=== PATIENT | female | born 1935 | race Caucasian/White ===

== ENCOUNTER 2016-10-02 15:42 | Inpatient (IN) | payer MEDICARE, OTHER ==
[2016-10-02] MEDS ORDERED: ACETAMINOPHEN 325 MG TABLET PO ONE (16:20)
[2016-10-02] MEDS ORDERED: HOME MEDICATION LIST NEEDED 1 EA EACH MISC ONE (17:06)
[2016-10-02] MEDS ORDERED: ACETAMINOPHEN 325 MG TABLET PO PRN (17:06)
--- NOTE | 2016-10-02 17:41 | ER NURSING DOCUMENTATION ---
Nurse's Notes [facility] Name:Maday Scott Age:81 yrs Sex:Female :1935 Arrival Date:10/02/2016 Time:15:45 Bed6 Private MD:Jesús Larson Diagnosis:Foot Contusion Presentation: 10/02 16:02 Presenting complaint: Patient states: L foot injury not from a fall. Transition of lp care: Home. 16:02 Method Of Arrival: EMS: 410 lp 16:02 Acuity: LEBRON 3 lp Triage Assessment: 16:15 General: Appears in no apparent distress, Behavior is appropriate for age. Pain: lp Complains of pain in lateral aspect of left foot Pain currently is 2 out of 10 on a pain scale. At worst was 10 out of 10 on a pain scale. Aggravated by weight bearing. Neuro: Cardiovascular: No deficits noted. Respiratory: No deficits noted. GI: No deficits noted. : No deficits noted. Derm: No deficits noted. Musculoskeletal: Circulation, motion, and sensation intact Capillary refill < 3 seconds other Edema noted to L medial and outer aspect of foot Tenderness present in lateral aspect of left foot and medial aspect of left foot. Injury Description: Patient was walking in house with walker and felt a snap. Historical: - PMHx: stroke; ANEMIA; TIA; ATRIAL FIB; OSTEOARTHRITIS; HYPERTENSION; DEPRESSION; OBESITY; Pedal Edema (November 22, 2014); Cellulitis of Leg - : Bilateral (November 22, 2014); Weakness (November 22, 2014); Cellulitis (January 18, 2015); Fecal Impaction (January 18, 2015); - PSHx: KNEE SURGERY; APPENDECTOMY; Carotid endardectomy; - Tetanus: < 10 years. - Ebola Screening: : Patient negative for fever greater than or equal to 101.5 degrees Fahrenheit, and additional compatible Ebola Virus Disease symptoms. Patient denies exposure to infectious person. Patient denies travel to an Ebola-affected area in the 21 days before illness onset. . - Immunization history: Pneumococcal vaccine is not up to date, Flu Vaccine None Flu Vaccine None. - Social history: Smoking status: Patient states former smoker of tobacco. Screenin:04 Infectious Disease Risk None. Abuse screen: Denies threats or abuse. Denies injuries lp from another. Nutritional screening: No deficits noted. Assessment: 16:12 Pain: Complains of pain in lateral aspect of left foot and medial aspect of left foot. lp Neuro: No deficits noted. EENT: No deficits noted. Cardiovascular: No deficits noted. Respiratory: No deficits noted. GI: No deficits noted. : No deficits noted. Derm: No deficits noted. Vital Signs: 16:03 BP 168 / 64; Pulse 75; Resp 16; Temp 98.5(O); Pulse Ox 94% on R/A; Weight 82.55 kg; lp Height 5 ft. 4 in. (162.56 cm); Pain 2/10; 16:03 Body Mass Index 31.24 (82.55 kg, 162.56 cm) lp ED Course: 15:48 Patient arrived in ED. ds 15:48 Jesús Larson MD is Private Physician. ds 16:02 Carmel Ham RN is Primary Nurse. lp 16:02 Triage completed. lp 16:[address] Gonzalez notified. lp 16:09 Port Xray Completed. ms 16:17 Valuables Remains with patient Patient has correct armband on for positive lp identification. Bed in low position. Call light in reach. Side rails up X 1. ED physician of patient's arrival and chief complaint. Dr. Gonzalez notified. 16:22 Lokesh Gonzalez MD is Attending Physician. mi 16:40 Jesús Larson MD is Referral Physician. mi 17:03 Jesús Larson MD is Admitting Physician. mi 17:10 Crutch training done. Walking boot applied Patient unable to tolerate crutches at this lp time due to shoulder pain. Fears falling. Administered Medications: 16:11 Drug: Tylenol 975 mg; Route: PO; lp 17:05 Follow up: Response: Pain is decreased lp Outcome: 16:41 Discharge ordered by . sc 17:04 Decision to Admit by Provider. mi 17:40 Admitted to Med/surg accompanied by nurse, Other Report to Vaishnavi MOROCHO lp 17:40 Condition: stable 17:40 Instructed on need to admit 17:41 Patient left the ED. lp Signatures: Carmel Ham RN RN lp Srot, Delfina, Reg Reg ds Lokesh Gonzalez MD MD mi Maday Marshall ms
--- NOTE | 2016-10-02 17:41 | ER PHYSICIAN DOCUMENTATION ---
Physician Documentation [facility] Name:Maday Scott Age:81 yrs Sex:Female :1935 Arrival Date:10/02/2016 Time:15:45 Bed6 Private MD:Jesús Larson ED, Scott Disposition: 10/02/16 17:04 Admit ordered for Jesús Larson. Preliminary diagnosis is Foot Contusion. - Bed requested for Medical/Surgical. - Condition is Fair. - Problem is new. - Symptoms are unchanged. 23 HR OBS Yes HPI: 10/02 16:34 This 81 yrs old Female presents to ER via EMS with complaints of foot - LEFT. sc 16:34 The patient presents with an injury. The complaints affect the left foot. Context: The sc problem was sustained at home, resulted from walking, felt crack and foot pain, no fall, Mechanism of Injury: Unknown the patient can partially bear weight, can ambulate using a cane. Onset: The symptom(s)/episode began/occurred just prior to arrival. Associated signs and symptoms: The patient has no apparent associated signs or symptoms. Historical: - PMHx: stroke; ANEMIA; TIA; ATRIAL FIB; OSTEOARTHRITIS; HYPERTENSION; DEPRESSION; OBESITY; Pedal Edema (November 22, 2014); Cellulitis of Leg - : Bilateral (November 22, 2014); Weakness (November 22, 2014); Cellulitis (January 18, 2015); Fecal Impaction (January 18, 2015); - PSHx: KNEE SURGERY; APPENDECTOMY; Carotid endardectomy; - Tetanus: < 10 years. - Ebola Screening: : Patient negative for fever greater than or equal to 101.5 degrees Fahrenheit, and additional compatible Ebola Virus Disease symptoms. Patient denies exposure to infectious person. Patient denies travel to an Ebola-affected area in the 21 days before illness onset. . - Immunization history: Pneumococcal vaccine is not up to date, Flu Vaccine None Flu Vaccine None. - Social history: Smoking status: Patient states former smoker of tobacco. ROS: 16:37 MS/extremity: Positive for injury or acute deformity, pain. sc 16:37 Constitutional: Negative for fever, chills, and weight loss. sc Eyes: Negative for injury, pain, redness, and discharge. Neck: Negative for injury, pain, and swelling. Skin: Negative for injury, rash, and discoloration. 16:37 Neuro: Negative for headache, weakness, numbness, tingling, and seizure. Exam: Constitutional: This is a well developed, well nourished patient who is awake, alert, and in no acute distress. Head/Face: Normocephalic, atraumatic. Eyes: Pupils equal round and reactive to light, extra-ocular motions intact. Lids and lashes normal. Conjunctiva and sclera are non-icteric and not injected. Cornea within normal limits. Periorbital areas with no swelling, redness, or edema. Back: No spinal tenderness. No costovertebral tenderness. Full range of motion. 16:39 Skin: Warm, dry with normal turgor. Normal color with no rashes, no lesions, and no sc evidence of cellulitis. 16:39 Musculoskeletal/extremity: Extremities: grossly normal except: pain, ROM: intact in all extremities, Circulation is intact in all extremities. Sensation intact. diffuse lateral foot pain, no specific xray abnormality, suspect stress fx. Vital Signs: 16:03 BP 168 / 64; Pulse 75; Resp 16; Temp 98.5(O); Pulse Ox 94% on R/A; Weight 82.55 kg; lp Height 5 ft. 4 in. (162.56 cm); Pain 2/10; 16:03 Body Mass Index 31.24 (82.55 kg, 162.56 cm) lp MDM: 16:23 Patient medically screened. va 16:40 Differential diagnosis: fracture, sprain, arthritis. Data reviewed: vital signs, nurses sc notes, radiologic studies, and as a result, I will discharge patient. Counseling: I had a detailed discussion with the patient and/or guardian regarding: the historical points, exam findings, and any diagnostic results supporting the discharge/admit diagnosis, radiology results, the need for outpatient follow up. 17:04 Physician consultation: Jesús Larson MD was called at 17:04, was contacted at 17:04, va regarding admission, and will see patient in inpatient room, shortly. 10/02 16:18 Order name: [id number] [id number] EDCT 10/02 16:32 Interpretation: Normal: degenerative changes. va 10/02 16:34 Order name: Elevate and Ice Pack; Complete Time: 17:05 va 10/02 16:34 Order name: ORTHO: Crutches & Training; Complete Time: 17:05 va 10/02 16:34 Order name: Walking Boot; Complete Time: 17:05 va Dispensed Medications: 16:11 Drug: Tylenol 975 mg; Route: PO; lp 17:05 Follow up: Response: Pain is decreased lp Signatures: Carmel Ham RN RN Lokesh Venegas MD MD va
[2016-10-02] MEDS ORDERED: POLYETHYLENE GLYCOL 3350 17 GM POWD.PACK PO PRN (19:16)
[2016-10-02] MEDS ORDERED: MORPHINE SULFATE 2 MG/ML SYR IV PRN (19:28)
[2016-10-02] MEDS ORDERED: HYDROcodone/APAP 5/325 MG 1 TAB TABLET PO PRN (19:28)
[2016-10-02] MEDS ORDERED: WARFARIN SODIUM 5 MG TABLET PO SCH (20:00)
[2016-10-02] MEDS: LIDOCAINE 5% 1 PATCH PATCH TOPICAL SCH (20:20)
[2016-10-02] MEDS: DICLOFENAC 1% GEL 100 APP/100 GM TUBE TOPICAL SCH (20:20)
[2016-10-02] MEDS ORDERED: WARFARIN SODIUM 2.5 MG TABLET PO ONE (20:21)
[2016-10-02] MEDS: ACETAMINOPHEN ER 650 MG TAB.SR.8HR PO SCH (21:24)
[2016-10-02] MEDS: WARFARIN SODIUM 2.5 MG TABLET PO SCH (21:26)
[2016-10-03 06:02] LABS: BASOPHILS 0.8 % (0.0-2.0); EOSINOPHILS 3.8 % (0.0-6.0); EOSINOPHILS# 0.2 X 10^3uL (0.0-0.4); HEMATOCRIT 36.8 % (36.0-48.0); HEMOGLOBIN 12.5 g/dL (12.0-16.0); LYMPHOCYTES 29.1 % (20.0-40.0); LYMPHOCYTES# 1.2 X 10^3uL (0.8-3.8); MEAN CORPUS. HGB CONCENTRATION 33.8 g/dL (32.0-36.0); MEAN CORPUSCULAR HEMOGLOBIN 28.8 pg (29.0-35.0); MEAN PLATELET VOLUME 7.5 fL (7.4-10.4); MONOCYTES 10.3 % (2.0-10.0); MONOCYTES# 0.4 X 10^3uL (0.2-1.0); NEUTROPHILS# 2.3 X 10^3uL (2.6-6.7); PLATELET COUNT 237 X 10^3uL (130-440); RED BLOOD COUNT 4.33 X 10^6uL (4.20-6.10); RED CELL DISTRIBUTION WIDTH 13.2 % (11.5-14.5); WHITE BLOOD COUNT 4.1 X 10^3uL (3.9-10.7)
[2016-10-03 06:20] LABS: BLOOD UREA NITROGEN 13 mg/dL (7-17); C-REACTIVE PROTEIN 13.6 mg/L (<10.0); CALCIUM 9.6 mg/dL (8.4-10.2); CALCULATED LDL 90 mg/dL; CHLORIDE 98 mmol/L (98-107); CHOL/HDL RATIO 3 (<4); CHOLESTEROL 156 mg/dL; CREATININE 0.8 mg/dL (0.5-1.0); GLUCOSE 78 mg/dL (70-100); HDL CHOLESTEROL 47 mg/dL; POTASSIUM 4.1 mmol/L (3.5-5.1); SODIUM 132 mmol/L (137-145); TRIGLYCERIDES 95 mg/dL; VLDL CHOLESTEROL 19 mg/dL (<30)
--- NOTE | 2016-10-03 07:42 | RADIOLOGY REPORT ---
Three views of the left foot demonstrate no displaced fracture or dislocation. The visualized joints appear unremarkable. Posterior and plantar calcaneal spurs are seen. IMPRESSION; No displaced injury is identified. If clinically indicated, further evaluation and/or follow-up may be of benefit. CORNEL
[2016-10-03 08:07] LABS: ERYTHROCYTE SEDIMENTATION RATE 12 MM/HR (0-20)
[2016-10-03 08:24] LABS: INR 3.2
[2016-10-03] MEDS: TRIAMTERENE PO SCH (08:30)
[2016-10-03] MEDS: HCTZ PO SCH (08:30)
[2016-10-03] MEDS: MULTIVITAMINS THERAPEUTIC 1 TABLET PO SCH (08:31)
[2016-10-03] MEDS: ACETAMINOPHEN ER 650 MG TAB.SR.8HR PO SCH ×3 (08:31→20:32)
[2016-10-03] MEDS: REMOVE PATCH 1 PATCH PATCH TOPICAL SCH (08:32)
[2016-10-03] MEDS: DICLOFENAC 1% GEL 100 APP/100 GM TUBE TOPICAL SCH ×4 (08:33→20:31)
[2016-10-03] MEDS: CHOLECALCIFEROL 1,000 UNIT CAPSULE PO SCH (11:57)
--- NOTE | 2016-10-03 13:53 | CONSULTATION ---
DATE OF CONSULTATION: 10/03/16 REFERRING PHYSICIAN: Dr. Larson. CHIEF COMPLAINT: Left foot pain. Dear Dr. Larson, Thank you for asking me to evaluate this patient. As you know she is an 81-year -old female who was at home yesterday when she felt a crack in her left foot as she was walking. She denies stumbling and denies sustaining a twist injury or inversion injury to the foot. However, she was then immediately unable to ambulate and was brought into the emergency department. Radiographs at that time did not reveal any obvious evidence of fracture, but due to her inability to weight bear on the left lower extremity she was admitted to the hospital. PAST MEDICAL HISTORY: Her past medical history is otherwise remarkable for 1. Stroke. 2. Anemia. 3. TIA. 4. Atrial fibrillation. 5. Hypertension. 6. Depression. PAST SURGICAL HISTORY: Remarkable for 1. Bilateral knee replacements. 2. Appendectomy. 3. Carotid endarterectomy. MEDICATIONS: She is currently on Acetaminophen. Maxzide. MiraLax. Coumadin. Lopressor. ALLERGIES: Penicillins, clindamycin, miconazole, neomycin. FAMILY HISTORY: Noncontributory. SOCIAL HISTORY: The patient lives alone and is a nonsmoker. REVIEW OF SYSTEMS: Review of systems is negative for a fall and is negative for any chest pain or shortness of breath. Review of systems is otherwise noncontributory. PHYSICAL EXAMINATION GENERAL: A somewhat frail appearing, elderly female in no apparent distress, who is alert and oriented. LEFT FOOT: Physical examination of the left foot reveals that there is mild diffuse swelling compared to the right foot. There is no deformity. She is somewhat tender to palpation adjacent to the distal portion of the fifth metatarsal, but exquisitely tender to palpation at the base of the fifth metatarsal. There is no warmth or erythema in that area. The remainder of the foot is entirely nontender and she has pain free motion otherwise. X-RAY EVALUATION: Plain radiographs of the foot that were obtained in the emergency department revealed diffuse osteopenia but no obvious fracture. ASSESSMENT: Acute left foot pain with sensation of a crack at the onset of her symptoms suggesting the possibility of occult fracture of the base of the fifth metatarsal. PLAN/RECOMMENDATIONS: We will obtain an MRI of the foot in order to evaluate her for an occult fracture. This will simply help us with diagnosis and give us an idea as to what she would expect in terms of recovery. In the mean time she can continue to weight bear as tolerated in a short fracture boot and I will follow up on the results of the MRI. Thank you again for asking me to evaluate this patient. Copy to Dr. Larson. CORNEL
--- NOTE | 2016-10-03 14:42 | MRI REPORT ---
EXAM: MRI left foot. DATE: 10/03/2016 INDICATION: Left foot pain. Rule out occult fracture of the fifth metatarsal. COMPARISON: None. TECHNIQUE: Axial T1 and T2 fat-suppressed, coronal PD and T2 fat-suppressed, sagittal PD and T2 fat-s uppressed sequences. FINDINGS: There is extensive subcutaneous edema involving posterior ventral and plantar aspect of the foot incl uding the deep soft tissues on the plantar aspect. No abscess. Osseous: There is subcortical cystic change involving the medial cuneiform at the navicular cuneiform joint space. This is associated with degenerative disease with joint space during, cortical irregula rity and marginal osteophytes. No fractures identified. There is no evidence of osteonecrosis. No mar row edema or evidence of osteomyelitis. The distal, visualized portion of the peroneus brevis tendon appears unremarkable as it inserts on the base of the fifth metatarsal. There are degenerative changes of the the ventricular cuneiform joint involving the medial cuneiform. Remaining joint spaces appear adequately maintained. No dislocation. The toes are held in extension have a hammertoe configuration the second through fifth toes. There are less marked changes of the gr eat toe. The flexor and extensor tendon mechanisms appear intact. The plantar fascia is intact. IMPRESSION: 1. Extensive edema of the subcutaneous fat and deep soft tissues of the ventral and plantar aspect of the foot. No abscess or mass. 2. No evidence of fracture, osteonecrosis or osteomyelitis. 3. Degenerative disease of the joint space between the ventricular and medial cuneiform. Final Electronic Signature: This report was electronically signed by Mane Giron MD on 10/03/2016 2: 40 PM. [facility] /
[2016-10-03] MEDS: WARFARIN SODIUM 2.5 MG TABLET PO SCH (15:26)
--- NOTE | 2016-10-03 15:42 | HISTORY & PHYSICAL ---
DATE OF ADMISSION AND MY EVALUATION: 10/02/16 CHIEF COMPLAINT: Left foot pain. HISTORY OF PRESENT ILLNESS: This 81-year-old homebound patient of mine has had several weeks of some mild left foot pain, which had not been brought to my attention. This afternoon while she was up walking to the bathroom she heard a pop in her left midfoot and felt a sudden pain there. The pain has persisted and made it very difficult to do any ambulation. She has no previous history of foot problems, gout or any recent trauma. She lives alone in the upper floor of a house, and has not managed the stairs for a long time. She has helpers who bring in food and supplies, as well as some help from home health care for some chronic leg ulcerations. She was brought to the emergency department by ambulance after being carried out of her home, and was in too much pain with ambulation to be able to go back home or even to walk more than a step or two. PAST MEDICAL HISTORY 1. Chronic fatigue. 2. Generalized severe osteoarthrosis making ambulation difficult. She generally uses a walker. 3. Hypertension. 4. Hyperlipidemia. 5. Major depressive disorder, controlled. 6. Obesity. 7. Osteopenia. 8. Paroxysmal atrial fibrillation with chronic anticoagulation with warfarin. 9. Pedal edema. 10. Previous transient ischemic attacks. 11. 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 Previous ulcer on the left alfaro has resolved. 12. Chronic urinary incontinence. 13. Venostasis dermatitis, both lower extremities. 14. Chronic leukopenia. 15. History of iron deficiency anemia. ALLERGIES: Include clindamycin hives, Neosporin, penicillin and shellfish shrimp. MEDICATIONS ON ADMISSION Tylenol sustained release 650 mg t.i.d. regularly. Vitamin D3 2000 mg capsules q.daily. Garlic 1000 mg b.i.d. Magnesium 144 mg p.o. daily. Metoprolol succinate 50 mg once daily. Triamterene hydrochlorothiazide 37.5/25 mg one-half tablet daily. Niacin flush free, 500 mg capsules, 2 twice daily. Multivitamin 1 daily. SOCIAL HISTORY: See HPI. She is a former smoker but quit many years ago. Minimal alcohol use. The patient in the past has completed a DNR form which is still valid. REVIEW OF SYSTEMS GENERAL: Fatigued, no fever or chills. RESPIRATORY: No cough or shortness of breath. CARDIOVASCULAR: No chest pain or palpitations. GI: No nausea, vomiting, diarrhea or abdominal pain. : Some chronic urinary incontinence, unchanged. MUSCULOSKELETAL: Acute severe pain in the left midfoot with ambulation primarily. Some chronic generalized arthritic pains especially in the knees and lower back. PHYSICAL EXAMINATION VITAL SIGNS: On admission were a temp of 36.8, blood pressure 198/86, pulse 69 , respirations 18, O2 saturation 92% on room air. GENERAL: She was alert and oriented times 3 and in no acute distress at rest, but in great distress with any ambulation, even with a short leg walking boot. HEENT: Atraumatic. Oral mucosa was moist. LUNGS: Clear but with some distant breath sounds. HEART: A regular rhythm and no murmur. ABDOMEN: Mildly obese, nontender, without masses or hepatosplenomegaly. EXTREMITIES: Without edema. She has some chronic well controlled stasis dermatitis in both lower legs with some apple core type deformities. She has an approximately 6 mm crusted ulceration in the right lower alfaro. No other active ulcers. LABORATORY DATA: Her white count was 4100 with 56% neutrophils and 29% lymphs, hemoglobin was 12.5, hematocrit 36.8, platelets were at 237,000. Her ESR was only 12. INR was 3.2. Sodium 132, potassium 4.1, chloride 98, CO2 26, creatinine 0.8, glucose 78. C reactive protein elevated at 13.6. IMAGING: The patients left foot x-ray appeared to be normal for age without any fractures. IMPRESSION 1. Acute on chronic left foot pain severe enough to inhibit ambulation. The differential diagnosis would include an occult fracture, rupture of the plantar fascia or gout. 2. Hypertension under poor control, probably because of being in the hospital and having pain. 3. Hyperlipidemia needing recheck. 4. Previous history of TIA. 5. Atrial fibrillation, primarily with episodes in the night. Slightly excessively anticoagulated and on metoprolol for rate control. 6. Obesity. 7. Generalized weakness with muscle atrophy, making it impossible for her to get up the stairs given her foot pain. PLAN: I plan to have the patient evaluated by orthopedics in the morning. Will cover her discomfort with regular dosing of the Tylenol supplemented with p.r.n. hydrocodone and/or morphine. I am hesitant to give her any oral NSAIDs because of her anticoagulation. I did order Lidoderm patches to use at night and Voltaren gel to use during the day. I have given her an extra dose of metoprolol to get the blood pressure down. Will continue her other usual medications. Will check cholesterol status. Once we have a more definitive diagnosis we can work out social and logistical issues for discharge. CORNEL
--- NOTE | 2016-10-03 16:45 | PROGRESS NOTE: Orthopedics ---
Orthopedic PN Subjective - Subjective Principal Diagnosis: Left foot pain Ortho PN Objective Exam - Latest Vital Signs and I&O Latest Vital Signs/I&O: Vital Signs Temp 37.2 C 10/03/16 15:00 Pulse 60 10/03/16 15:00 Resp 18 10/03/16 15:00 BP 146/60 10/03/16 15:00 Pulse Ox 96 10/03/16 15:00 Intake & Output 10/02/16 10/03/16 10/03/16 17:59 05:59 17:59 Weight 78.5 kg 78.5 kg Other: Urine Color Yellow Yellow Voiding Method Incontinent Incontinent - Lab Labs: Laboratory Last Values WBC 4.1 X 10^3uL (3.9-10.7) 10/03/16 05:20 RBC 4.33 X 10^6uL (4.20-6.10) 10/03/16 05:20 Hgb 12.5 g/dL (12.0-16.0) 10/03/16 05:20 Hct 36.8 % (36.0-48.0) 10/03/16 05:20 MCV 85.0 fL (80.0-100.0) 10/03/16 05:20 MCH 28.8 pg (29.0-35.0) L 10/03/16 05:20 MCHC 33.8 g/dL (32.0-36.0) 10/03/16 05:20 RDW 13.2 % (11.5-14.5) 10/03/16 05:20 Plt Count 237 X 10^3uL (130-440) 10/03/16 05:20 MPV 7.5 fL (7.4-10.4) 10/03/16 05:20 Neutrophils % 56.0 % (54.0-75.0) 10/03/16 05:20 Lymphocytes % 29.1 % (20.0-40.0) 10/03/16 05:20 Eosinophils % 3.8 % (0.0-6.0) 10/03/16 05:20 Basophils % 0.8 % (0.0-2.0) 10/03/16 05:20 Neutrophils # 2.3 X 10^3uL (2.6-6.7) L 10/03/16 05:20 Lymphocytes # 1.2 X 10^3uL (0.8-3.8) 10/03/16 05:20 Monocytes 10.3 % (2.0-10.0) H 10/03/16 05:20 Monocytes # 0.4 X 10^3uL (0.2-1.0) 10/03/16 05:20 Eosinophils # 0.2 X 10^3uL (0.0-0.4) 10/03/16 05:20 Basophils # 0.0 X 10^3uL (0.0-0.1) 10/03/16 05:20 ESR 12 MM/HR (0-20) 10/03/16 05:20 PT 38.0 sec (13.0-16.6) H 10/03/16 05:20 INR 3.2 10/03/16 05:20 Sodium 132 mmol/L (137-145) L 10/03/16 05:20 Potassium 4.1 mmol/L (3.5-5.1) 10/03/16 05:20 Chloride 98 mmol/L (98-107) 10/03/16 05:20 Carbon Dioxide 26 mmol/L (22-30) 10/03/16 05:20 BUN 13 mg/dL (7-17) 10/03/16 05:20 Creatinine 0.8 mg/dL (0.5-1.0) 10/03/16 05:20 GFR Calculation Not Reportable 10/03/16 05:20 Glucose 78 mg/dL (70-100) 10/03/16 05:20 Uric Acid 5.4 mg/dL (2.5-6.2) 10/03/16 05:20 Calcium 9.6 mg/dL (8.4-10.2) 10/03/16 05:20 C-Reactive Protein 13.6 mg/L (<10.0) H 10/03/16 05:20 Triglycerides 95 mg/dL 10/03/16 05:20 Cholesterol 156 mg/dL 10/03/16 05:20 LDL Cholesterol, Calc 90 mg/dL 10/03/16 05:20 VLDL Cholesterol, Calc 19 mg/dL (<30) 10/03/16 05:20 HDL Cholesterol 47 mg/dL 10/03/16 05:20 Cholesterol/HDL Ratio 3 (<4) 10/03/16 05:20 Assessment and Plan-Ortho - Date of Encounter Date of Encounter: 10/03/16 (1) Acute pain of left foot Status: Acute Assessment and plan: Reviewed MRI. No evidence of occult fracture. Plan: Pt may weightbear as tolerated, using boot for comfort. After discharge she should f/u with podiatry if she has persistent pain. Current Visit: Yes Quality Questions - VTE Prophylaxis Assessment VTE Present on Admission?: No Patient at risk for venous thromboembolism?: No VTE Risk Level: Very Low Risk Pharmaceutical VTE prophylaxis contraindication reason: not indicated Mechanical VTE prophylaxis contraindication reason: not indicated
--- NOTE | 2016-10-03 19:54 | PROGRESS NOTE: IM APSO ---
Assessment and Plan - Date of Encounter Date of Encounter: 10/03/16 (1) Acute pain of left foot Status: Acute Assessment and plan: the exact etiology of her acute left foot pain remains unclear. Her MRI today ruled out an occult fracture or any obvious soft tissue injury or infection. She does have some soft tissue swelling, but chronically has bilateral pedal edema. perhaps she strained her plantar fascia, since most of the pain seems to be localized to the mid sole area. Her pain is a little better today, although she cannot stand on that leg. She cannot function at home and less she can walk 5 or 10 feet at a time to get to the bathroom and kitchen. I am hopeful that by tomorrow afternoon, she may be able to accomplish that. She will likely need paramedics to assist her up her stairs to get to the living level. Once she is on her living level, she should be okay with her current caregivers. She has used to living on that level long-term, and has only gotten out once or twice a year for the past couple years. She is not interested in going to [facility]. Current Visit: Yes (2) Generalized weakness Status: Acute Assessment and plan: She has chronic generalized weakness, but worse in the right leg than the left since her stroke 5 or 6 years ago. This is complicating her situation. Refer to the section on left foot pain. Current Visit: Yes (3) Right leg weakness Status: Acute Assessment and plan: Mild. 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 Current Visit: Yes - Time Spent With Patient Total time spent with greater than 50% in coordination of care (as documented) at patient's floor/unit and/or counseling patient: Estimated anticipated discharge: 10/04/16. Dr. Webber will cover IM: PN Subjective General: fatigue HEENT: no headache Cardiovascular: no chest pain Respiratory: no cough Gastrointestinal: no nausea, no diarrhea, no constipation Genitourinary: no dysuria Musculoskeletal: pain (her left foot pain is excruciating when she stands on it. ), swelling (mild and chronic in both lower legs.), weakness (Some chronic weakness in the right leg. ) Integumentary: no rashes, no wound Neurological: no numbness, no tingling IM: PN Objective Exam - I&O/Vital Signs I&O: Intake & Output 10/03/16 10/03/1610/03/17 05:59 13:59 21:59 Intake Total 640 Output Total 100 Balance 540 Weight 78.5 kg 78.5 kg Intake: Oral 640 Output: Urine 100 Other: Urine Appearance Clear Urine Color Yellow Yellow Stool Size Small Stool Characteristics Formed Brown Voiding Method Incontinent Incontinent # Voids 5 Vital Signs: Last Vital Signs Temp 37.3 C 10/03/16 19:00 Pulse 87 10/03/16 19:00 Resp 20 10/03/16 19:00 BP 131/64 10/03/16 19:00 Pulse Ox 94 10/03/16 19:00 Oxygen Flow Rate 1 Oxygen Delivery Method Nasal Cannula - Constitutional General appearance: Present: cooperative, obese. Absent: acute distress - ENT ENT exam: Present: mucous membranes dry - Cardiovascular Cardiovascular exam: Present: RRR. Absent: systolic murmur - GI/Abdominal GI/Abdominal exam: Present: soft. Absent: tenderness - Neurological Exam Neurological exam: Present: abnormal gait (today she was able to pivot from the bed to the bedside commode primarily using her right leg. She is unable to weight-bear on t because of the foot pain.), alert, oriented X3 - Skin Skin exam: Absent: rash - Allied Health Notes Allied health notes reviewed: case management, nursing - Lab Labs: Laboratory Last Values WBC 4.1 X 10^3uL (3.9-10.7) 10/03/16 05:20 RBC 4.33 X 10^6uL (4.20-6.10) 10/03/16 05:20 Hgb 12.5 g/dL (12.0-16.0) 10/03/16 05:20 Hct 36.8 % (36.0-48.0) 10/03/16 05:20 MCV 85.0 fL (80.0-100.0) 10/03/16 05:20 MCH 28.8 pg (29.0-35.0) L 10/03/16 05:20 MCHC 33.8 g/dL (32.0-36.0) 10/03/16 05:20 RDW 13.2 % (11.5-14.5) 10/03/16 05:20 Plt Count 237 X 10^3uL (130-440) 10/03/16 05:20 MPV 7.5 fL (7.4-10.4) 10/03/16 05:20 Neutrophils % 56.0 % (54.0-75.0) 10/03/16 05:20 Lymphocytes % 29.1 % (20.0-40.0) 10/03/16 05:20 Eosinophils % 3.8 % (0.0-6.0) 10/03/16 05:20 Basophils % 0.8 % (0.0-2.0) 10/03/16 05:20 Neutrophils # 2.3 X 10^3uL (2.6-6.7) L 10/03/16 05:20 Lymphocytes # 1.2 X 10^3uL (0.8-3.8) 10/03/16 05:20 Monocytes 10.3 % (2.0-10.0) H 10/03/16 05:20 Monocytes # 0.4 X 10^3uL (0.2-1.0) 10/03/16 05:20 Eosinophils # 0.2 X 10^3uL (0.0-0.4) 10/03/16 05:20 Basophils # 0.0 X 10^3uL (0.0-0.1) 10/03/16 05:20 ESR 12 MM/HR (0-20) 10/03/16 05:20 PT 38.0 sec (13.0-16.6) H 10/03/16 05:20 INR 3.2 10/03/16 05:20 Sodium 132 mmol/L (137-145) L 10/03/16 05:20 Potassium 4.1 mmol/L (3.5-5.1) 10/03/16 05:20 Chloride 98 mmol/L (98-107) 10/03/16 05:20 Carbon Dioxide 26 mmol/L (22-30) 10/03/16 05:20 BUN 13 mg/dL (7-17) 10/03/16 05:20 Creatinine 0.8 mg/dL (0.5-1.0) 10/03/16 05:20 GFR Calculation Not Reportable 10/03/16 05:20 Glucose 78 mg/dL (70-100) 10/03/16 05:20 Uric Acid 5.4 mg/dL (2.5-6.2) 10/03/16 05:20 Calcium 9.6 mg/dL (8.4-10.2) 10/03/16 05:20 C-Reactive Protein 13.6 mg/L (<10.0) H 10/03/16 05:20 Triglycerides 95 mg/dL 10/03/16 05:20 Cholesterol 156 mg/dL 10/03/16 05:20 LDL Cholesterol, Calc 90 mg/dL 10/03/16 05:20 VLDL Cholesterol, Calc 19 mg/dL (<30) 10/03/16 05:20 HDL Cholesterol 47 mg/dL 10/03/16 05:20 Cholesterol/HDL Ratio 3 (<4) 10/03/16 05:20
[2016-10-03] MEDS: LIDOCAINE 5% 1 PATCH PATCH TOPICAL SCH (20:31)
[2016-10-03] MEDS: MAGNESIUM OXIDE 400 MG TABLET PO SCH (20:32)
[2016-10-04] MEDS: TRIAMTERENE PO SCH (08:11)
[2016-10-04] MEDS: ACETAMINOPHEN ER 650 MG TAB.SR.8HR PO SCH ×3 (08:11→20:15)
[2016-10-04] MEDS: HCTZ PO SCH (08:11)
[2016-10-04] MEDS: MULTIVITAMINS THERAPEUTIC 1 TABLET PO SCH (08:12)
[2016-10-04] MEDS: MAGNESIUM OXIDE 400 MG TABLET PO SCH ×2 (08:12→20:15)
[2016-10-04] MEDS: DICLOFENAC 1% GEL 100 APP/100 GM TUBE TOPICAL SCH ×4 (08:18→20:15)
[2016-10-04] MEDS: REMOVE PATCH 1 PATCH PATCH TOPICAL SCH (08:20)
[2016-10-04] MEDS ORDERED: MULTIVITAMINS THERAPEUTIC 1 TABLET PO SCH (09:00)
--- NOTE | 2016-10-04 12:58 | PROGRESS NOTE: IM SOAP ---
IM: PN Subjective General: fatigue HEENT: no headache Cardiovascular: no chest pain Respiratory: no cough Gastrointestinal: no nausea, no diarrhea, no constipation Genitourinary: no dysuria Musculoskeletal: pain (her left foot pain is excruciating when she stands on it. ), swelling (mild and chronic in both lower legs.), weakness (Some chronic weakness in the right leg. ) Integumentary: no rashes, no wound Neurological: no numbness, no tingling IM: PN Objective Exam - I&O/Vital Signs I&O: Intake & Output 10/03/16 10/04/16 10/04/16 21:59 05:59 13:59 Intake Total 640 200 Output Total 100 Balance 540 200 Weight 79.5 kg Intake: Oral 640 200 Output: Urine 100 Other: Urine Appearance Clear Urine Color Yellow Stool Size Small Stool Characteristics Formed Brown Voiding Method Incontinent Diaper Diaper # Voids 5 3 # Bowel Movements 0 Vital Signs: Last Vital Signs Temp 36.3 C L 10/04/16 11:00 Pulse 62 10/04/16 11:00 Resp 16 10/04/16 11:00 BP 128/58 10/04/16 11:00 Pulse Ox 93 10/04/16 11:00 Oxygen Flow Rate 1 Oxygen Delivery Method Room Air - Constitutional General appearance: Present: cooperative, obese. Absent: acute distress - ENT ENT exam: Present: mucous membranes dry - Cardiovascular Cardiovascular exam: Present: RRR, systolic murmur - GI/Abdominal GI/Abdominal exam: Present: soft. Absent: tenderness - Neurological Exam Neurological exam: Present: abnormal gait (today she was able to pivot from the bed to the bedside commode primarily using her right leg. She is unable to weight-bear on t because of the foot pain.), alert, oriented X3 - Skin Skin exam: Absent: rash - Allied Health Notes Allied health notes reviewed: case management, nursing - Lab Labs: Laboratory Last Values WBC 4.1 X 10^3uL (3.9-10.7) 10/03/16 05:20 RBC 4.33 X 10^6uL (4.20-6.10) 10/03/16 05:20 Hgb 12.5 g/dL (12.0-16.0) 10/03/16 05:20 Hct 36.8 % (36.0-48.0) 10/03/16 05:20 MCV 85.0 fL (80.0-100.0) 10/03/16 05:20 MCH 28.8 pg (29.0-35.0) L 10/03/16 05:20 MCHC 33.8 g/dL (32.0-36.0) 10/03/16 05:20 RDW 13.2 % (11.5-14.5) 10/03/16 05:20 Plt Count 237 X 10^3uL (130-440) 10/03/16 05:20 MPV 7.5 fL (7.4-10.4) 10/03/16 05:20 Neutrophils % 56.0 % (54.0-75.0) 10/03/16 05:20 Lymphocytes % 29.1 % (20.0-40.0) 10/03/16 05:20 Eosinophils % 3.8 % (0.0-6.0) 10/03/16 05:20 Basophils % 0.8 % (0.0-2.0) 10/03/16 05:20 Neutrophils # 2.3 X 10^3uL (2.6-6.7) L 10/03/16 05:20 Lymphocytes # 1.2 X 10^3uL (0.8-3.8) 10/03/16 05:20 Monocytes 10.3 % (2.0-10.0) H 10/03/16 05:20 Monocytes # 0.4 X 10^3uL (0.2-1.0) 10/03/16 05:20 Eosinophils # 0.2 X 10^3uL (0.0-0.4) 10/03/16 05:20 Basophils # 0.0 X 10^3uL (0.0-0.1) 10/03/16 05:20 ESR 12 MM/HR (0-20) 10/03/16 05:20 PT 38.0 sec (13.0-16.6) H 10/03/16 05:20 INR 3.2 10/03/16 05:20 Sodium 132 mmol/L (137-145) L 10/03/16 05:20 Potassium 4.1 mmol/L (3.5-5.1) 10/03/16 05:20 Chloride 98 mmol/L (98-107) 10/03/16 05:20 Carbon Dioxide 26 mmol/L (22-30) 10/03/16 05:20 BUN 13 mg/dL (7-17) 10/03/16 05:20 Creatinine 0.8 mg/dL (0.5-1.0) 10/03/16 05:20 GFR Calculation Not Reportable 10/03/16 05:20 Glucose 78 mg/dL (70-100) 10/03/16 05:20 Uric Acid 5.4 mg/dL (2.5-6.2) 10/03/16 05:20 Calcium 9.6 mg/dL (8.4-10.2) 10/03/16 05:20 C-Reactive Protein 13.6 mg/L (<10.0) H 10/03/16 05:20 Triglycerides 95 mg/dL 10/03/16 05:20 Cholesterol 156 mg/dL 10/03/16 05:20 LDL Cholesterol, Calc 90 mg/dL 10/03/16 05:20 VLDL Cholesterol, Calc 19 mg/dL (<30) 10/03/16 05:20 HDL Cholesterol 47 mg/dL 10/03/16 05:20 Cholesterol/HDL Ratio 3 (<4) 10/03/16 05:20 Assessment and Plan - Date of Encounter Date of Encounter: 10/04/16 (1) Acute pain of left foot Status: Acute Assessment and plan: Cannot bear weight, or walk or stand safely. MRI neg. Dr Lindsey has consulted. pt heard a popping sound. Regardless, not safe for d/c, lives alone, s/p CVA with R sided weakness. Current Visit: Yes (2) Generalized weakness Status: Chronic Current Visit: Yes (3) Right leg weakness Status: Chronic Assessment and plan: r/t prev CVA Current Visit: Yes (4) Hyponatremia Status: Acute Assessment and plan: Last labs 05/01; sodium low today. suspect diuretic in meds, will d/c and follow. She may need low dose other med, like Norvasc or ERIC; but will watch BPs. At her age, avoid hypotension. Current Visit: No (5) HTN (hypertension) Status: Chronic Current Visit: Yes (6) Anticoagulated Status: Chronic Assessment and plan: INR too high; will hold dose and reassess Friday, may need adjustment of dosing. For now, Fri dose is cancelled. Current Visit: Yes (7) Discharge planning issues Status: Suspected Assessment and plan: She may need more time to recover, possible transfer to [facility] on Friday, or perhaps improved enough to go home. Current Visit: Yes - Time Spent With Patient Total time spent with greater than 50% in coordination of care (as documented) at patient's floor/unit and/or counseling patient: Estimated anticipated discharge: 10/04/16. Dr. Webber will cover
[2016-10-04] MEDS: CHOLECALCIFEROL 1,000 UNIT CAPSULE PO SCH (14:29)
[2016-10-04] MEDS ORDERED: WARFARIN SODIUM 2.5 MG TABLET PO SCH (16:00)
[2016-10-04] MEDS ORDERED: WARFARIN SODIUM 5 MG TABLET PO SCH (16:00)
[2016-10-04] MEDS: LIDOCAINE 5% 1 PATCH PATCH TOPICAL SCH (20:15)
[2016-10-05] MEDS: ACETAMINOPHEN ER 650 MG TAB.SR.8HR PO SCH ×4 (08:31→21:26)
[2016-10-05] MEDS: MULTIVITAMINS THERAPEUTIC 1 TABLET PO SCH (08:31)
[2016-10-05] MEDS: MAGNESIUM OXIDE 400 MG TABLET PO SCH ×2 (08:31→21:17)
[2016-10-05] MEDS: DICLOFENAC 1% GEL 100 APP/100 GM TUBE TOPICAL SCH ×4 (08:32→21:17)
[2016-10-05] MEDS: REMOVE PATCH 1 PATCH PATCH TOPICAL SCH (08:32)
[2016-10-05] MEDS: CHOLECALCIFEROL 1,000 UNIT CAPSULE PO SCH (11:22)
--- NOTE | 2016-10-05 12:33 | PROGRESS NOTE: IM SOAP ---
IM: PN Subjective Musculoskeletal: pain (severe L foot pain with wt bearing), swelling (mild and chronic in both lower legs.), weakness (Chronic weakness in the right leg. ) IM: PN Objective Exam - I&O/Vital Signs I&O: Intake & Output 10/04/16 10/05/16 10/05/16 21:59 05:59 13:59 Intake Total 1290 300 Balance 1290 300 Weight 78 kg Intake: Oral 1290 300 Other: Urine Appearance Clear Clear Urine Color Yellow Yellow Voiding Method Incontinent Diaper Diaper # Voids 3 # Bowel Movements 1 0 Vital Signs: Last Vital Signs Temp 36.6 C 10/05/16 11:00 Pulse 65 10/05/16 11:00 Resp 18 10/05/16 11:00 BP 142/64 10/05/16 11:00 Pulse Ox 90 10/05/16 11:00 Oxygen Flow Rate 1 Oxygen Delivery Method Room Air - Extremities Exam Additional comments: L foot FROM, NV intact. Pain localized over plantar and mid metatarsal region. Per pt, pain worsens with any wt bearing precluding ambulation. Mild pedal edema. - Lab Labs: Laboratory Last Values WBC 4.1 X 10^3uL (3.9-10.7) 10/03/16 05:20 RBC 4.33 X 10^6uL (4.20-6.10) 10/03/16 05:20 Hgb 12.5 g/dL (12.0-16.0) 10/03/16 05:20 Hct 36.8 % (36.0-48.0) 10/03/16 05:20 MCV 85.0 fL (80.0-100.0) 10/03/16 05:20 MCH 28.8 pg (29.0-35.0) L 10/03/16 05:20 MCHC 33.8 g/dL (32.0-36.0) 10/03/16 05:20 RDW 13.2 % (11.5-14.5) 10/03/16 05:20 Plt Count 237 X 10^3uL (130-440) 10/03/16 05:20 MPV 7.5 fL (7.4-10.4) 10/03/16 05:20 Neutrophils % 56.0 % (54.0-75.0) 10/03/16 05:20 Lymphocytes % 29.1 % (20.0-40.0) 10/03/16 05:20 Eosinophils % 3.8 % (0.0-6.0) 10/03/16 05:20 Basophils % 0.8 % (0.0-2.0) 10/03/16 05:20 Neutrophils # 2.3 X 10^3uL (2.6-6.7) L 10/03/16 05:20 Lymphocytes # 1.2 X 10^3uL (0.8-3.8) 10/03/16 05:20 Monocytes 10.3 % (2.0-10.0) H 10/03/16 05:20 Monocytes # 0.4 X 10^3uL (0.2-1.0) 10/03/16 05:20 Eosinophils # 0.2 X 10^3uL (0.0-0.4) 10/03/16 05:20 Basophils # 0.0 X 10^3uL (0.0-0.1) 10/03/16 05:20 ESR 12 MM/HR (0-20) 10/03/16 05:20 PT 38.0 sec (13.0-16.6) H 10/03/16 05:20 INR 3.2 10/03/16 05:20 Sodium 132 mmol/L (137-145) L 10/03/16 05:20 Potassium 4.1 mmol/L (3.5-5.1) 10/03/16 05:20 Chloride 98 mmol/L (98-107) 10/03/16 05:20 Carbon Dioxide 26 mmol/L (22-30) 10/03/16 05:20 BUN 13 mg/dL (7-17) 10/03/16 05:20 Creatinine 0.8 mg/dL (0.5-1.0) 10/03/16 05:20 GFR Calculation Not Reportable 10/03/16 05:20 Glucose 78 mg/dL (70-100) 10/03/16 05:20 Uric Acid 5.4 mg/dL (2.5-6.2) 10/03/16 05:20 Calcium 9.6 mg/dL (8.4-10.2) 10/03/16 05:20 C-Reactive Protein 13.6 mg/L (<10.0) H 10/03/16 05:20 Triglycerides 95 mg/dL 10/03/16 05:20 Cholesterol 156 mg/dL 10/03/16 05:20 LDL Cholesterol, Calc 90 mg/dL 10/03/16 05:20 VLDL Cholesterol, Calc 19 mg/dL (<30) 10/03/16 05:20 HDL Cholesterol 47 mg/dL 10/03/16 05:20 Cholesterol/HDL Ratio 3 (<4) 10/03/16 05:20 Assessment and Plan - Date of Encounter Date of Encounter: 10/05/16 (1) Acute pain of left foot Status: Acute Assessment and plan: Neg MRI scan. Dr Lindsey not clear on etiology. Pt unable to bear wt do to excruciating pain. L leg boot. PT Podiatry consult Current Visit: Yes (2) Generalized weakness Status: Chronic Assessment and plan: PT Current Visit: Yes (3) Hyponatremia Status: Acute Assessment and plan: Follow labs Current Visit: No (4) HTN (hypertension) Status: Chronic Current Visit: Yes (5) Atrial fibrillation Status: Acute Assessment and plan: Warfarin Current Visit: Yes - Time Spent With Patient Total time spent with greater than 50% in coordination of care (as documented) at patient's floor/unit and/or counseling patient: Estimated anticipated discharge: 10/04/16. Dr. Webber will cover
[2016-10-05] MEDS: WARFARIN SODIUM 2.5 MG TABLET PO SCH (15:01)
[2016-10-05] MEDS: LIDOCAINE 5% 1 PATCH PATCH TOPICAL SCH (21:17)
[2016-10-06 07:12] LABS: BLOOD UREA NITROGEN 14 mg/dL (7-17); CALCIUM 9.4 mg/dL (8.4-10.2); CHLORIDE 95 mmol/L (98-107); CREATININE 0.7 mg/dL (0.5-1.0); GLUCOSE 85 mg/dL (70-100); POTASSIUM 4.5 mmol/L (3.5-5.1); SODIUM 129 mmol/L (137-145)
[2016-10-06 07:51] LABS: INR 1.7
[2016-10-06] MEDS: ACETAMINOPHEN ER 650 MG TAB.SR.8HR PO SCH ×3 (09:59→20:59)
[2016-10-06] MEDS: REMOVE PATCH 1 PATCH PATCH TOPICAL SCH (10:00)
[2016-10-06] MEDS: MULTIVITAMINS THERAPEUTIC 1 TABLET PO SCH (10:00)
[2016-10-06] MEDS: MAGNESIUM OXIDE 400 MG TABLET PO SCH ×2 (10:00→20:59)
[2016-10-06] MEDS: DICLOFENAC 1% GEL 100 APP/100 GM TUBE TOPICAL SCH ×4 (10:01→21:02)
[2016-10-06] MEDS: CHOLECALCIFEROL 1,000 UNIT CAPSULE PO SCH (11:47)
--- NOTE | 2016-10-06 13:35 | PROGRESS NOTE: IM SOAP ---
IM: PN Subjective Musculoskeletal: pain (severe L foot pain with wt bearing), swelling (mild and chronic in both lower legs.), weakness (Chronic weakness in the right leg. ) IM: PN Objective Exam - I&O/Vital Signs I&O: Intake & Output 10/05/16 10/06/16 10/06/16 21:59 05:59 13:59 Intake Total 950 350 Balance 950 350 Weight 78 kg Intake: Oral 950 350 Other: Urine Appearance Clear Urine Color Yellow Stool Size Moderate Moderate Stool Characteristics Soft Soft Brown Brown Voiding Method Bedside Commode Diaper Incontinent # Voids 2 4 # Bowel Movements 1 0 Vital Signs: Last Vital Signs Temp 36.2 C L 10/06/16 11:00 Pulse 58 L 10/06/16 11:00 Resp 24 10/06/16 11:00 BP 158/67 10/06/16 11:00 Pulse Ox 99 10/06/16 11:00 Oxygen Flow Rate 1 Oxygen Delivery Method Room Air - Extremities Exam Additional comments: L foot FROM, NV intact. Pain localized over plantar and mid metatarsal region. Per pt, pain worsens with any wt bearing precluding ambulation. Mild pedal edema. - Lab Labs: Laboratory Last Values WBC 4.1 X 10^3uL (3.9-10.7) 10/03/16 05:20 RBC 4.33 X 10^6uL (4.20-6.10) 10/03/16 05:20 Hgb 12.5 g/dL (12.0-16.0) 10/03/16 05:20 Hct 36.8 % (36.0-48.0) 10/03/16 05:20 MCV 85.0 fL (80.0-100.0) 10/03/16 05:20 MCH 28.8 pg (29.0-35.0) L 10/03/16 05:20 MCHC 33.8 g/dL (32.0-36.0) 10/03/16 05:20 RDW 13.2 % (11.5-14.5) 10/03/16 05:20 Plt Count 237 X 10^3uL (130-440) 10/03/16 05:20 MPV 7.5 fL (7.4-10.4) 10/03/16 05:20 Neutrophils % 56.0 % (54.0-75.0) 10/03/16 05:20 Lymphocytes % 29.1 % (20.0-40.0) 10/03/16 05:20 Eosinophils % 3.8 % (0.0-6.0) 10/03/16 05:20 Basophils % 0.8 % (0.0-2.0) 10/03/16 05:20 Neutrophils # 2.3 X 10^3uL (2.6-6.7) L 10/03/16 05:20 Lymphocytes # 1.2 X 10^3uL (0.8-3.8) 10/03/16 05:20 Monocytes 10.3 % (2.0-10.0) H 10/03/16 05:20 Monocytes # 0.4 X 10^3uL (0.2-1.0) 10/03/16 05:20 Eosinophils # 0.2 X 10^3uL (0.0-0.4) 10/03/16 05:20 Basophils # 0.0 X 10^3uL (0.0-0.1) 10/03/16 05:20 ESR 12 MM/HR (0-20) 10/03/16 05:20 PT 22.2 sec (13.0-16.6) H 10/06/16 06:25 INR 1.7 D 10/06/16 06:25 Sodium 129 mmol/L (137-145) L 10/06/16 06:25 Potassium 4.5 mmol/L (3.5-5.1) 10/06/16 06:25 Chloride 95 mmol/L (98-107) L 10/06/16 06:25 Carbon Dioxide 27 mmol/L (22-30) 10/06/16 06:25 BUN 14 mg/dL (7-17) 10/06/16 06:25 Creatinine 0.7 mg/dL (0.5-1.0) 10/06/16 06:25 GFR Calculation Not Reportable 10/06/16 06:25 Glucose 85 mg/dL (70-100) 10/06/16 06:25 Uric Acid 5.4 mg/dL (2.5-6.2) 10/03/16 05:20 Calcium 9.4 mg/dL (8.4-10.2) 10/06/16 06:25 C-Reactive Protein 13.6 mg/L (<10.0) H 10/03/16 05:20 Triglycerides 95 mg/dL 10/03/16 05:20 Cholesterol 156 mg/dL 10/03/16 05:20 LDL Cholesterol, Calc 90 mg/dL 10/03/16 05:20 VLDL Cholesterol, Calc 19 mg/dL (<30) 10/03/16 05:20 HDL Cholesterol 47 mg/dL 10/03/16 05:20 Cholesterol/HDL Ratio 3 (<4) 10/03/16 05:20 Assessment and Plan - Date of Encounter Date of Encounter: 10/06/16 (1) Acute pain of left foot Status: Acute Assessment and plan: Neg MRI scan. Dr Lindsey not clear on etiology. Pt unable to bear wt do to excruciating pain. L leg boot. PT Podiatry consult Current Visit: Yes (2) Generalized weakness Status: Chronic Assessment and plan: Chronic R leg weakness. PT Current Visit: Yes (3) Hyponatremia Status: Acute Assessment and plan: Follow labs Current Visit: No (4) HTN (hypertension) Status: Chronic Assessment and plan: Restart Maxzide Current Visit: Yes (5) Atrial fibrillation Status: Acute Current Visit: Yes - Time Spent With Patient Total time spent with greater than 50% in coordination of care (as documented) at patient's floor/unit and/or counseling patient: Estimated anticipated discharge: 10/04/16. Dr. Webber will cover
[2016-10-06] MEDS ORDERED: HYDROCHLOROTHIAZIDE 25 MG TABLET PO ONE (15:20)
[2016-10-06] MEDS: HCTZ PO SCH (15:22)
[2016-10-06] MEDS: WARFARIN SODIUM 2.5 MG TABLET PO SCH (15:22)
[2016-10-06] MEDS: TRIAMTERENE PO SCH (15:22)
[2016-10-06] MEDS: LIDOCAINE 5% 1 PATCH PATCH TOPICAL SCH (20:59)
[2016-10-07 06:40] VITALS: O2SAT 92
--- NOTE | 2016-10-07 08:54 | DC SUMMARY: IM Note ---
Discharge Summary: IM/Peds Provider: Date of Admission: 10/02/16 Admitting Provider: CAYETANO FARNSWORTH MD Attending Provider: CAYETANO FARNSWORTH MD Discharging Provider: JACI HARVEY MD Primary Care Provider: Discharge Date: 10/07/16 Consults: 10/02/16 19:14 Orthopedic Consult [CONS] Routine Reason: severe L foot pain after pop 10/05/16 12:25 Podiatry Consult [CONS] Routine Reason: L Foot Pain - Diagnosis (1) Acute pain of left foot Status: Acute (2) Generalized weakness Status: Chronic (3) Right leg weakness Status: Chronic (4) Hyponatremia Status: Acute (5) HTN (hypertension) Status: Chronic (6) Anticoagulated Status: Chronic (7) Discharge planning issues Status: Suspected Hospital Course: Pt had sudden onset of L foot pain simply walking, and has had no explanation by imaging; xrays and MRI not revealing. She is truly handicapped by this pain. Will request podiatry to see and consider Palomino's neuroma or other etiology. Her other chronic medical issues are fairly stable; I'm inclined to stop her HCTZ with the worsening hyponatremia and try another BP med, as she does need control of HTN. INR also needing close f/u. - Time Spent with Patient Total time spent providing and/or coordinating discharge services: Discharge - Patient/Caregiver Discharge Instructions Activity Level: walking boot, guided by PT, as able. Diet: Usual Additional Instructions: I have asked the foot doctor to see you FIGUEROA about the possibility of an injection. Dr Lindsey feels the foot doc will know best, so we will wait for Dr Christensen. Overall discharge status: patient is not back to baseline Disposition: [facility] Discharge Summary Data - Medication History Medication History: Home Medications Cholecalciferol [Vitamin D*] 4,000 unit PO DAILY 01/18/15 Garlic 1 each PO BID 01/18/15 Triamterene/Hydrochlorothiazid [Triamterene-Hctz 37.5-25 mg Tb] 0.5 each PO DAILY 01/18/15 metoprolol SUCC ER [Toprol Xl*] 50 mg PO WITH BREAKFAST 01/18/15 Warfarin Sodium [Coumadin*] 5 mg PO WEEKLY 10/02/16 Acetaminophen [Tylenol] 650 mg PO TID PRN 10/03/16 Magnesium Oxide [Mag-Ox*] 400 mg PO BID 10/03/16 Multivitamins,Therapeutic [Thera] 1 tab PO DAILY 10/03/16 Niacin ER [Niacin] 1,000 mg PO BID 10/03/16 Warfarin Sodium [Coumadin*] 7.5 mg PO DAILY 10/03/16 Inpatient Medications 10/02/16 19:16 Polyethylene Glycol 3350 [miraLAX] 17 gm PO QPM PRN 10/02/16 19:28 HYDROcodone/APAP 5/325 MG [[place]] 1 tab PO Q6H PRN Morphine Sulfate 1 mg IV Q3H PRN 10/02/16 20:45 Warfarin Sodium [Coumadin] 7.5 mg PO SUTUWETHSA@1600 10/02/16 21:00 Acetaminophen ER [Tylenol ER] 650 mg PO TID Diclofenac 1% Gel [Voltaren Gel 1%] 1 helen TOPICAL QID Lidocaine 5% [Lidoderm 5%] 1 patch TOPICAL HS 10/03/16 08:00 metoprolol SUCC ER [topROL XL] 50 mg PO WITH BREAKFAST 10/03/16 09:00 Multivitamins,Therapeutic [Thera] 1 tab PO DAILY Remove Patch [Patch Removal] 1 patch TOPICAL DAILY 10/03/16 11:00 Cholecalciferol [Vitamin D3] 2,000 unit PO BEFORE LUNCH 10/03/16 21:00 Magnesium Oxide [Mag-Ox] 400 mg PO BID 10/06/16 14:00 Triamterene/Hctz 37.5/25 mg [Maxzide] 1 tab PO DAILY Procedures and tests throughout hospitalization: Completed Lab Orders 10/03/16 05:20 BMP [BASIC METABOLIC PANEL] [CHEM] AMDRAW CBC AUTO DIF, MDIF/RMOR IF IND [HEM] AMDRAW ESR [ERYTHROCYTE SEDIMENTATION RATE] [HEM] AMDRAW LIPID PANEL [CHEM] AMDRAW PT/INR [PROTIME/INR] [HEM] AMDRAW URIC ACID [CHEM] AMDRAW crp arthritis [C-REACTIVE PROTEIN] [CHEM] AMDRAW 10/06/16 06:25 BMP [BASIC METABOLIC PANEL] [CHEM] Routine PROTIME/INR [HEM] Routine Completed Imaging Orders 10/03/16 10:36 [place] [[place] [address]] [MRI] Routine Pending Orders 10/02/16 17:06 Resuscitation Status Routine 10/02/16 19:14 Orthopedic Consult [CONS] Routine 10/02/16 19:16 Polyethylene Glycol 3350 [miraLAX] 17 gm PO QPM PRN 10/02/16 19:28 HYDROcodone/APAP 5/325 MG [[place]] 1 tab PO Q6H PRN Morphine Sulfate 1 mg IV Q3H PRN 10/02/16 20:45 Warfarin Sodium [Coumadin] 7.5 mg PO SUTUWETHSA@1600 10/02/16 21:00 Acetaminophen ER [Tylenol ER] 650 mg PO TID Diclofenac 1% Gel [Voltaren Gel 1%] 1 helen TOPICAL QID Lidocaine 5% [Lidoderm 5%] 1 patch TOPICAL HS 10/03/16 08:00 metoprolol SUCC ER [topROL XL] 50 mg PO WITH BREAKFAST 10/03/16 09:00 Multivitamins,Therapeutic [Thera] 1 tab PO DAILY Remove Patch [Patch Removal] 1 patch TOPICAL DAILY 10/03/16 11:00 Cholecalciferol [Vitamin D3] 2,000 unit PO BEFORE LUNCH 10/03/16 21:00 Magnesium Oxide [Mag-Ox] 400 mg PO BID 10/04/16 12:47 Admit: Inpatient Routine 10/05/16 12:25 Podiatry Consult [CONS] Routine 10/06/16 13:35 Activity: Up to Chair TID 10/06/16 14:00 Triamterene/Hctz 37.5/25 mg [Maxzide] 1 tab PO DAILY 10/07/16 08:33 BMP [BASIC METABOLIC PANEL] [CHEM] Urgent PROTIME/INR [HEM] Urgent IM: Discharge Physical Exam - I&O/Vital Signs I&O: Intake & Output 10/06/16 10/07/16 10/07/16 21:59 05:59 13:59 Intake Total 1200 500 Balance 1200 500 Weight 79.5 kg Intake: Oral 1200 500 Other: Urine Appearance Clear Urine Color Yellow Stool Size Moderate Stool Characteristics Formed Brown Voiding Method Incontinent Diaper # Voids 4 # Bowel Movements 1 0 Vital Signs: Last Vital Signs Temp 36.7 C 10/07/16 06:38 Pulse 63 10/07/16 06:38 Resp 22 10/07/16 06:38 BP 140/56 10/07/16 06:38 Pulse Ox 92 10/07/16 06:38 Oxygen Flow Rate 1 Oxygen Delivery Method Room Air - Constitutional General appearance: Present: cooperative, obese. Absent: acute distress - ENT ENT exam: Present: mucous membranes dry - Cardiovascular Cardiovascular exam: Present: RRR, systolic murmur - GI/Abdominal GI/Abdominal exam: Present: soft. Absent: tenderness - Extremities Exam Extremities exam: Present: tenderness (btwn 1-2 MT rays, no mass noted) - Neurological Exam Neurological exam: Present: abnormal gait (today she was able to pivot from the bed to the bedside commode primarily using her right leg. She is unable to weight-bear on t because of the foot pain.), alert, oriented X3 - Skin Skin exam: Absent: rash - Allied Health Notes Allied health notes reviewed: case management, nursing
[2016-10-07 09:15] LABS: BLOOD UREA NITROGEN 16 mg/dL (7-17); CALCIUM 9.7 mg/dL (8.4-10.2); CHLORIDE 92 mmol/L (98-107); CREATININE 0.8 mg/dL (0.5-1.0); GLUCOSE 116 mg/dL (70-100); INR 1.6; POTASSIUM 4.6 mmol/L (3.5-5.1); SODIUM 127 mmol/L (137-145)
[2016-10-07] MEDS: HCTZ PO SCH (09:43)
[2016-10-07] MEDS: TRIAMTERENE PO SCH (09:43)
[2016-10-07] MEDS: MAGNESIUM OXIDE 400 MG TABLET PO SCH (09:43)
[2016-10-07] MEDS: MULTIVITAMINS THERAPEUTIC 1 TABLET PO SCH (09:43)
[2016-10-07] MEDS: ACETAMINOPHEN ER 650 MG TAB.SR.8HR PO SCH ×2 (09:44→14:14)
[2016-10-07] MEDS: REMOVE PATCH 1 PATCH PATCH TOPICAL SCH (09:46)
[2016-10-07] MEDS: DICLOFENAC 1% GEL 100 APP/100 GM TUBE TOPICAL SCH (09:46)
[2016-10-07] MEDS ORDERED: HCTZ PO ONE (09:52)
[2016-10-07] MEDS ORDERED: TRIAMTERENE PO ONE (09:52)
[2016-10-07 10:14] VITALS: BP 151/63; PULSE 65; RESP 20; TEMP 97.5
[2016-10-07] MEDS: CHOLECALCIFEROL 1,000 UNIT CAPSULE PO SCH (11:13)
[2016-10-07] MEDS ORDERED: WARFARIN SODIUM 2.5 MG TABLET PO ONE (14:23)
[2016-10-07] MEDS ORDERED: ACETAMINOPHEN ER 650 MG TAB.SR.8HR PO ONE (14:23)
[2016-10-07] MEDS ORDERED: WARFARIN SODIUM 5 MG TABLET PO ONE (14:23)
== END 2016-10-07 08:55 | DRG 556 ==
LOC: ER 15:45 → IN 17:23 → UNDOADMOB 17:23 → IN 10-04 12:47 → OBSVTOIN 10-04 12:47
PROVIDERS: ADMIT Family Medicine; ATTEND Family Medicine
DX: M79.672 Pain in left foot (principal); L97.911 Non-pressure chronic ulcer of unspecified part of right lower leg limited to breakdown of skin; E87.1 Hypo-osmolality and hyponatremia; R26.2 Difficulty in walking, not elsewhere classified; R53.1 Weakness; I10 Essential (primary) hypertension; I48.2 Chronic atrial fibrillation; K59.00 Constipation, unspecified; M54.5 Low back pain; I69.341 Monoplegia of lower limb following cerebral infarction affecting right dominant side; F32.89 Other specified depressive episodes; R53.82 Chronic fatigue, unspecified; E78.5 Hyperlipidemia, unspecified; E66.9 Obesity, unspecified; M85.89 Other specified disorders of bone density and structure, multiple sites; I87.2 Venous insufficiency (chronic) (peripheral); D72.819 Decreased white blood cell count, unspecified; D50.0 Iron deficiency anemia secondary to blood loss (chronic); R32 Unspecified urinary incontinence; R60.0 Localized edema; Z79.01 Long term (current) use of anticoagulants; Z79.899 Other long term (current) drug therapy; Z74.3 Need for continuous supervision
CPT/HCPCS: 36415; 73630; 80048; 80061; 84550; 85025; 85610; 85651; 86140; 99285; A0425; A0429

== ENCOUNTER 2016-10-07 14:03 | Inpatient (IN) | payer MEDICARE, OTHER ==
[2016-10-11 09:51] LABS: BLOOD UREA NITROGEN 16 mg/dL (7-17); CALCIUM 9.8 mg/dL (8.4-10.2); CHLORIDE 94 mmol/L (98-107); CREATININE 0.7 mg/dL (0.5-1.0); GLUCOSE 84 mg/dL (70-100); POTASSIUM 4.8 mmol/L (3.5-5.1); SODIUM 130 mmol/L (137-145)
[2016-10-11 09:59] LABS: INR W/O CAPI DRAW 1.3 (0.8-1.2)
== END 2016-10-14 00:01 | disposition still patient (30) | DRG 556 ==
LOC: PPLC 14:03
PROVIDERS: ADMIT Family Medicine; ATTEND Family Medicine
DX: M79.672 Pain in left foot (principal); R26.2 Difficulty in walking, not elsewhere classified; R53.1 Weakness; I10 Essential (primary) hypertension; I48.2 Chronic atrial fibrillation; M54.5 Low back pain; I69.341 Monoplegia of lower limb following cerebral infarction affecting right dominant side; F32.89 Other specified depressive episodes; R53.82 Chronic fatigue, unspecified; E78.5 Hyperlipidemia, unspecified; E66.9 Obesity, unspecified; M85.89 Other specified disorders of bone density and structure, multiple sites; L97.911 Non-pressure chronic ulcer of unspecified part of right lower leg limited to breakdown of skin; I87.2 Venous insufficiency (chronic) (peripheral); D72.819 Decreased white blood cell count, unspecified; D50.0 Iron deficiency anemia secondary to blood loss (chronic); R32 Unspecified urinary incontinence; R60.0 Localized edema; Z79.01 Long term (current) use of anticoagulants; Z79.899 Other long term (current) drug therapy
CPT/HCPCS: 36415; 80048; 82040; 85610; G8987; G8988

== ENCOUNTER 2016-10-14 00:02 | Inpatient (IN) | payer MEDICARE, OTHER ==
[2016-10-19] MEDS ORDERED: HCTZ PO SCH
[2016-10-19] MEDS ORDERED: TRIAMTERENE PO SCH
--- NOTE | 2016-10-22 10:52 | DISCHARGE SUMMARY ---
PRINCIPLE DIAGNOSES 1. Severe left foot pain, exact etiology uncertain. 2. Hypertension. 3. Paroxysmal atrial fibrillation. 4. Obesity. 5. Generalized weakness. 6. Long-term anticoagulation for atrial fibrillation. 7. Distant history of cerebrovascular accident with some persisting minor left leg weakness. 8. Chronic pedal edema with venous stasis ulcers, now healed. PP COURSE: This patient was initially admitted to acute care at [facility] because of acute left foot pain. This occurred while she was simply walking and she felt a pop and sudden pain. Thorough workup including an orthopedic consult, Podiatry consult and MRI failed to identify the exact etiology, but she improved over time. Five days ago, she had a transient worsening while walking, but a few days ago, she was able to walk 150 feet with physical therapist and a walker. MEDICATIONS AT DISCHARGE Maxzide 37.5/25 mg 1 tab daily for her pedal edema and hypertension. Acetaminophen 650 mg extended release t.i.d. regularly. Vitamin D3 2000 unit capsules 2 daily. Diclofenac gel 1% applied q.i.d. to her left foot. Uralic 1000 mg daily. Lactate 3000 units daily as needed for dairy products. Magnesium 144 mg daily. Metoprolol 50 mg daily. Multivitamin 1 daily. Warfarin 7.5 mg daily except for Fridays when she takes 5 mg. ALLERGIES: Clindamycin, Neosporin, Penicillin and shell fish. PHYSICAL EXAMINATION AT DISCHARGE VITAL SIGNS: Temperature 97.8, pulse 71, respiratory rate 16, blood pressure 148 /80, O2 saturation 90% on room air. Weight 175.5 pounds with a height of 167 cm. GENERAL: She was alert and oriented x3 and in no acute distress but mildly anxious. She is very much wanting to go home. HEENT: Oral mucosa was moist. LUNGS: Clear. HEART: Regular rate and rhythm. ABDOMEN: Obese but nontender. EXTREMITIES: 1+ bilateral pedal edema (improved since switching back from Amlodipine to Maxzide). Her alfaro ulcers are healed, but she has some chronic stasis dermatitis in the duration of the lower shins bilaterally. The left foot had mild tenderness along the plantar fascia and all along the 5th metatarsal. No erythema or warmth. She is able to ambulate with no pain using the walker. LABORATORY DATA: INR 2.3 today. Her albumin on 10/08/16 was 3.9. DISPOSITION: Patient was discharged to home today. She will have help from Home Health Care with nurse, Physical Therapy and an aide. She also has a private caregiver. She will have a home visit from mt on 10/29/16 around 6:00 p.m. COR[facility]
== END 2016-10-21 13:23 | disposition home or self-care (01) | DRG 556 ==
LOC: PPLC 00:02
PROVIDERS: ADMIT Family Medicine; ATTEND Family Medicine
DX: M79.672 Pain in left foot (principal); R26.2 Difficulty in walking, not elsewhere classified; R53.1 Weakness; I69.341 Monoplegia of lower limb following cerebral infarction affecting right dominant side; I10 Essential (primary) hypertension; E78.5 Hyperlipidemia, unspecified; I48.2 Chronic atrial fibrillation; M54.5 Low back pain; R53.82 Chronic fatigue, unspecified; K59.00 Constipation, unspecified; E66.9 Obesity, unspecified; M85.89 Other specified disorders of bone density and structure, multiple sites; L97.911 Non-pressure chronic ulcer of unspecified part of right lower leg limited to breakdown of skin; I87.2 Venous insufficiency (chronic) (peripheral); D72.819 Decreased white blood cell count, unspecified; D50.0 Iron deficiency anemia secondary to blood loss (chronic); Z79.01 Long term (current) use of anticoagulants; Z79.899 Other long term (current) drug therapy
CPT/HCPCS: 85610